=== PATIENT | female | born 1975 | race Caucasian/White ===

== ENCOUNTER 2024-12-13 11:00 | Outpatient (RCR) | payer MEDICARE, MEDICAID, SELFPAY ==
--- NOTE | 2024-11-29 10:24 | PTNOTE_ITS ---
PT OP Initial Eval Patient Information Outpatient Physical Therapy Treatment Date: 11/29/24 Visit Reasons: Right heel deformity Medical Diagnosis: Right Foot Cherelle's Deformity Treatment Dx #1: Right Foot Pain Start of Care: 11/29/24 Date of Onset: 6 months ago Smoking Status Smoking Status: Never smoker Initial Assessment Subjective: Pt is a 48 y/o female reports of chronic right foot pain (5/10) worsening ~ 6 months ago. Pt was prescribed a boot, however, it didn't help and was too small. Pt has limitation with walking, standing, chores, balance, and performing recreational activities. Objective: Right Ankle AROM: all motions are WFL Right Ankle MMTs: grossly 4-/5 Right Hip MMTs: grossly 3+/5 Palpation: TTP posterior calcaneus Assessment: Pt demonstrate right heel pain consistent with cherelle's deformity leading to difficulty with ADLs. Pt will attempt physical therapy if pain persist Pt will be refer back to provider for further consultation. Short Term and Nursing Home Goals 1) Increase right ankle MMTs grossly to 4/5 in 6 wks to be able to perform chores 2) Decrease heel pain to 2/10 in 6 wks to be able to walk more than 30 mins 3) Increase right hip MMTs grossly to 4-/5 in 6 wks to be able to perform recreational activities 4) Indep with HEP Treatment Plan 1) Manual Therapy 2) Therapeutic Activities 3) Therapeutic Exercises 4) Modalities (ice, heat) 5) Balance Training 6) Gait Training Frequency and Duration: 2 x wk for 6 wks Certification Dates: 11/29/24 to 02/27/25 Procedure Charges OP PT Eval Mod Complex 30 minutes: Yes
--- NOTE | 2024-12-06 14:04 | PT.ODAYNRPT ---
PT Outpatient Daily Note OP Daily Note Outpatient Physical Therapy Treatment Date: 12/06/24 Visit Reasons: Right heel deformity Subjective: Pt's foot is okay no new concerns to report Objective: Please see flow chart for list of ther ex performed Assessment: tolerate exercises with minimal pain Plan: Continue with PT Length of Time (minutes) of Treatment: 30 Minutes Procedure Charges Therapeutic Exercise 30 minutes: Yes
== END 2024-12-16 23:59 | disposition home or self-care (01) ==
LOC: CPTX 11:00
PROVIDERS: PCP Student in an Organized Health Care Education/Training Program; Referring Provider Student in an Organized Health Care Education/Training Program; Visit Provider Student in an Organized Health Care Education/Training Program
DX: M79.671 Pain in right foot (principal); M21.6X1 Other acquired deformities of right foot; R26.89 Other abnormalities of gait and mobility; G89.29 Other chronic pain
CPT/HCPCS: 97110; 97162

== ENCOUNTER 2025-01-12 11:00 | Outpatient (RCR) | payer MEDICARE, MEDICAID, SELFPAY ==
--- NOTE | 2024-12-27 13:08 | PT.ODAYNRPT ---
PT Outpatient Daily Note OP Daily Note Outpatient Physical Therapy Treatment Date: 12/27/24 Visit Reasons: RIGHT HEEL DEFORMITY Subjective: Pt reports R heel is doing ok, gets pain occasionally. Objective: Please see flow sheet for ther ex list. Assessment: Heel raises performed in sitting, pt c/o pain and discomfort when standing. Plan: Please see flow sheet for ther ex list. Length of Time (minutes) of Treatment: 30 Minutes CELL STRIPPER FINAL Service Modifier Method I: Divide the number of min of care provided by the CELL STRIPPER FINAL/DORINDA by the total min of care provided then multiply by 100. If greater than 11 percent modifier is required. Method II: Divide the total time of care provided to patient by 10 (round to the nearest whole number) and add 1 min. to set the minimum time requirement. If treatment total was 60 min., then 10% of 6 min PT CQ modifier applied: CQ Modifier applied Procedure Charges Therapeutic Exercise 30 minutes: Yes
--- NOTE | 2025-01-12 11:47 | PTNOTE_ITS ---
PT Outpatient Daily Note OP Daily Note Outpatient Physical Therapy Treatment Date: 01/12/25 Visit Reasons: RIGHT HEEL DEFORMITY Subjective: Pt reports she has been having more pain and soreness lately. Objective: Please see flow sheet for ther ex list. Assessment: Pt reports pain and discomfort with light ankle ROM interventions. Plan: Continue with pOC. Length of Time (minutes) of Treatment: 30 Minutes REFURBISH TECHNICIAN Service Modifier Method I: Divide the number of min of care provided by the REFURBISH TECHNICIAN/GRANITE POLISHER APPRENTICE by the total min of care provided then multiply by 100. If greater than 11 percent modifier is required. Method II: Divide the total time of care provided to patient by 10 (round to the nearest whole number) and add 1 min. to set the minimum time requirement. If treatment total was 60 min., then 10% of 6 min PT CQ modifier applied: CQ Modifier applied Procedure Charges Therapeutic Exercise 30 minutes: Yes
== END 2025-01-13 23:59 | disposition home or self-care (01) ==
LOC: CPTX 11:00
PROVIDERS: PCP Student in an Organized Health Care Education/Training Program; Referring Provider Student in an Organized Health Care Education/Training Program; Visit Provider Student in an Organized Health Care Education/Training Program
DX: M79.671 Pain in right foot (principal); R26.2 Difficulty in walking, not elsewhere classified; R26.89 Other abnormalities of gait and mobility; G89.29 Other chronic pain
CPT/HCPCS: 97110

== ENCOUNTER 2025-01-31 11:30 | Outpatient (RCR) | payer MEDICARE, MEDICAID, SELFPAY ==
--- NOTE | 2025-01-18 10:45 | PTNOTE_ITS ---
PT Outpatient Daily Note OP Daily Note Outpatient Physical Therapy Treatment Date: 01/18/25 Visit Reasons: RIGHT HEEL DEFORMITY Subjective: Pt's heel bone is growing more lately with pain. According to caregiver Pt has a follow up appt with head waiter/waitress banquet soon. Objective: Please see flow chart for list to ther ex performed Assessment: progressing with ankle mobility, however, no change in pain since starting physical therapy. Plan: Continue with PT Length of Time (minutes) of Treatment: 30 Minutes Procedure Charges Therapeutic Exercise 30 minutes: Yes
--- NOTE | 2025-01-23 15:38 | PT.ODAYNRPT ---
PT Outpatient Daily Note OP Daily Note Outpatient Physical Therapy Treatment Date: 01/23/25 Visit Reasons: RIGHT HEEL DEFORMITY Subjective: Pt's heel pain is worsening and will follow up with seismograph computer on 01/30/25. According to mercerizer machine operator if physical therapy does not help; surgery is an option Objective: Please see flow chart for list of ther ex performed Assessment: tolerate exercises with minimal pain; difficulty with hip abduction exercise due to pain Plan: Continue with PT Length of Time (minutes) of Treatment: 30 Minutes Procedure Charges Therapeutic Exercise 30 minutes: Yes
--- NOTE | 2025-01-31 13:13 | PTNOTE_ITS ---
PT Outpatient Daily Note OP Daily Note Outpatient Physical Therapy Treatment Date: 01/31/25 Visit Reasons: RIGHT HEEL DEFORMITY Subjective: Pt reports R foot and heel are hurting today. Objective: Please see flow sheet for ther ex list. Assessment: Pt presents in clinic with c/o pain but determined to complete interventions assigned. Plan: Continue with pOC. Length of Time (minutes) of Treatment: 30 Minutes FILM AND VIDEO EDITOR Service Modifier Method I: Divide the number of min of care provided by the FILM AND VIDEO EDITOR/PORTABLE IRRIGATION OPERATOR by the total min of care provided then multiply by 100. If greater than 11 percent modifier is required. Method II: Divide the total time of care provided to patient by 10 (round to the nearest whole number) and add 1 min. to set the minimum time requirement. If treatment total was 60 min., then 10% of 6 min PT CQ modifier applied: CQ Modifier applied Procedure Charges Therapeutic Exercise 30 minutes: Yes
== END 2025-02-13 23:59 | disposition home or self-care (01) ==
LOC: CPTX 11:30
PROVIDERS: PCP Student in an Organized Health Care Education/Training Program; Referring Provider Student in an Organized Health Care Education/Training Program; Visit Provider Student in an Organized Health Care Education/Training Program
DX: M79.671 Pain in right foot (principal); G89.29 Other chronic pain; R26.2 Difficulty in walking, not elsewhere classified; R26.89 Other abnormalities of gait and mobility; M21.6X1 Other acquired deformities of right foot
CPT/HCPCS: 97110

== ENCOUNTER 2025-08-17 10:05 | Outpatient (AMB) | payer MEDICARE, MEDICAID, SELFPAY ==
--- NOTE | 2025-08-17 10:38 | ORTHONT_ITS ---
Vital signs 08/17/25 10:42 Height 1.37 m Height Method Measured Weight 96.417 kg Weight Measurement Method Standing Scale BMI 51.3 BP 129/83 Blood Pressure Source Automatic Cuff Blood Pressure Location Left Upper Arm Position Sitting Respiration 18 Pulse 72 Pulse Source Monitor Temp 97.4 F Temp Source Temporal Artery Scan Pulse Oximetry (%) 94 L Oxygen Delivery Method Room Air Med/Allergies Allergies & Medications Allergies Penicillins Allergy (Severe, Verified 08/17/25 10:43) THROAT SWELLING morphine Allergy (Intermediate, Verified 08/17/25 10:43) Hallucinating codeine Allergy (Unknown, Verified 08/17/25 10:43) Bee Stings Allergy (Severe, Uncoded 08/17/25 10:43) STOPS BREATHING nectarine, tangarine Allergy (Severe, Uncoded 08/17/25 10:43) welts, vomiting Medication Reconciliation diclofenac sodium 1 % topical gel (Voltaren Arthritis Pain) 2 g topical QID #100 grams 09/29/23 [Rx Confirmed 08/17/25] meloxicam 7.5 mg tablet 7.5 mg PO BID #45 tabs 09/29/23 [Rx Confirmed 08/17/25] dextroamphetamine-amphetamine 10 mg tablet (Adderall) 10 mg PO QDAY 12/22/23 [History Confirmed 08/17/25] trazodone 50 mg tablet 50 mg PO QDAY 12/22/23 [History Confirmed 08/17/25] meloxicam 7.5 mg tablet 7.5 mg PO BID #45 tabs 04/29/24 [Rx Confirmed 08/17/25] meloxicam 7.5 mg tablet 7.5 mg PO QDAY #45 tabs 04/29/24 [Rx Confirmed 08/17/25] meloxicam 7.5 mg tablet 7.5 mg PO QDAY #45 tabs 08/30/24 [Rx Confirmed 08/17/25] Exam Exam Patient is in no acute distress and is cooperative with the examination today. Patient has a normal mood and affect. Breathing is nonlabored. In no respiratory distress. Bilateral extremities were evaluated and demonstrates sensation intact to light touch. Palpable pedal pulses are present. No significant edema is present. Bilateral knees demonstrate range of motion from 0 to 100 degrees. She is tender to palpation diffusely. Knee feels stable to varus and valgus stress as well as AP translation She walks with a limp X-rays demonstrate severe bilateral knee osteoarthritis. There is complete obliteration of the joint space Assessment and Plan Problem List (1) Down syndrome: Status: Acute (2) Arthritis of knee, right: Status: Acute Plan: Patient is a 47-year-old female with bilateral knee pain and osteoarthritis of significant severity. She is failed conservative treatment. At this point in time, we discussed total knee replacement is a reasonable option. However, I would like for her to lose more weight if possible. Her BMI is currently 49 and is largely because of her height. She is only 4 foot 6. We would likely need very small implants. Also template her total knee replacement We will have her come back to see us in approximately 3 months. I would like a goal weight loss of about 30 pounds recommend knee cortisone injection as patient would like to proceed with conservative treatment at this time. The risks and benefits of the procedure were reviewed with the patient and patient gave verbal consent to continue with the procedure. Procedure: performed by Dr. Lujan Using sterile technique the Right knee was thoroughly prepped with alcohol, and approximately 1 cc of Depo-Medrol 80mg/mL and 4 cc of 0.2% ropivacaine was injected without resistance into the medial tibial femoral joint space. The patient tolerated the procedure. Recommend knee cortisone injection as patient would like to proceed with conservative treatment at this time. The risks and benefits of the procedure were reviewed with the patient and patient gave verbal consent to continue with the procedure. Procedure: performed by Dr. Lujan Using sterile technique the leftknee was thoroughly prepped with alcohol, and approximately 1 cc of Depo- Medrol 80mg/mL and 4 cc of 0.2% ropivacaine was injected without resistance into the medial tibial femoral joint space. The patient tolerated the procedure. (3) Arthritis of knee, left: Status: Acute Office Procedures GNS Level of Care Nursing/Assessment Patient Status: Established Patient Nursing Assessment/Reassesment: Medication Reconciliation, Update PMH in EMR and Vital Signs Coordination of Care: Complex Care and Chronic Disease 1-5, Education Complex Pt/Fam, Consent,records obtained, informed consent, Results/Orders obtained and Staff clarify orders Established Patient Charge Established Patient Point Assignment: 95 Established Patient Point Charge: EP Level 3 (80-115) Surgical Proc/IM SQ injection Minor Surgical Procedure: Yes (KNEE INJECTION) Medication Given Medication Given Medication Given: Yes Documented Dose Given: 1 Route: Infiitration Medication Given Medication Given Medication Given: Yes Documented Dose Given: 1 Route: Infiitration Medication Given Medication Given Medication Given: Yes Documented Dose Given: 4 Route: Infiitration Medication Given Medication Given Medication Given: Yes Documented Dose Given: 4 Route: Infiitration Office Meds methylprednisolone acetate 80 mg/mL suspension for injection Performing Provider: Perry Lujan MD Performing Location: [facility] Administered by: Perry Lujan MD on 08/17/25 11:13 Dose Route Admin Location Dispensed Lot Number Expiration Date Pack age [facility] Millinery Worker 80 mg intra-articular KNEE 1 mL [id number] 05/15/27 [address]-5 7 [id number] [employer] methylprednisolone acetate 80 mg/mL suspension for injection Performing Provider: Perry Lujan MD [facility] Administered by: Perry Lujan MD on 08/17/25 11:13 Dose Route Admin Location Dispensed Lot Number Expiration Date Pack age [facility] M anufacturer 80 mg intra-articular KNEE 1 mL [id number] 05/15/27 [address]-3 7 [id number] [employer] ropivacaine (PF) 2 mg/mL (0.2 %) injection solution Performing Provider: Perry Lujan MD [facility] Administered by: Perry Lujan MD on 08/17/25 11:13 Dose Route Admin Location Dispensed Lot Number Expiration Date Pack age [facility] Millinery Worker 20 mL Infiltration KNEE 20 mL [id number] 12/16/27 17499-645-88 [id number] [facility] ropivacaine (PF) 2 mg/mL (0.2 %) injection solution Performing Provider: Perry Lujan MD [facility] Administered by: Perry Lujan MD on 08/17/25 11:13 Dose Route Admin Location Dispensed Lot Number Expiration Date Pack age [facility] Millinery Worker 20 mL Infiltration KNEE 20 mL [id number] 12/16/27 56019-173-07 [id number] [facility] Intake Visit Data Collection New Patient or Established: Established Patient (seen at [facility] within 3 years) Reason for Visit:: BILATERAL KNEE PAIN Seen by Clinical Staff ONLY (RN/MA): No Brick Off Bearer Required: No PCP or OBGYN visit in last 3 months: Yes Hx Now: No Do You Feel Safe at Home: Yes Authorities Contacted: N/A Questionairres Past Medical History Past Medical History Have you ever been diagnosed with any of the following: Cardiology Problems Congestive Heart Failure: No Respiratory Problems Chronic Obstructive Pulmonary Disease (COPD): No Smoking: No Smoking Exposure: No Genital/Urinary Problems Renal Disease: No Endocrine Problems Diabetes Mellitus Type 1: No Diabetes Mellitus Type 2: No Subjective Visit Visit for: follow up visit and knee Immunization / Flu Flu Vaccine in the Last 12 Months: No Flu Vaccine Exclusion Criteria: Refused by Patient History of Present Illness Chief complaint: Bilateral knee pain This is a pleasant 49-year-old female with bilateral knee pain and bilateral knee arthritis. We gave her an injection at the last visit and she did well. She would like bilateral knee cortisone injections today. She also recently started injections for weight loss. Pain Pain level (0-10): 0 Treatments Number of previous injections: 0 Improvement with previous injections: No Number of Physical Therapy sessions: 0 Improvement with PT: No Improvement with NSAIDS: no Review of Systems Review of Systems: All systems negative unless otherwise noted in HPI.
[2025-08-17 10:42] VITALS: BP 129/83; PULSE 72; RESP 18; TEMP 36.3; O2SAT 94; BMI 51.3
== END 2025-08-17 10:50 | disposition home or self-care (01) ==
PROVIDERS: Supervising Provider Orthopaedic Surgery Adult Reconstructive Orthopaedic Surgery; Visit Provider Orthopaedic Surgery Adult Reconstructive Orthopaedic Surgery
DX: M17.0 Bilateral primary osteoarthritis of knee (principal); M25.562 Pain in left knee; M25.561 Pain in right knee; Q90.9 Down syndrome, unspecified
CPT/HCPCS: 20610; 99213; J1010; J2795; G0463